=== PATIENT | male | born 1955 | race Caucasian/White ===

== ENCOUNTER 2016-08-11 12:48 | Day surgery (SDC) | payer OTHER ==
[~2016-08-11] VITALS: Ht 172.7 cm; Wt 107.0 kg
[~2016-08-11 12:48] MED LIST: ADAL40KI SQ; AMLO10TA3 PO; ATOR10TA66 PO; CYAN50002 SL; DIAZ5TAB3 PO; FENO67CA PO; HYDR-4003 PO; MESA4KIT RC; PROP40TA5 PO
[2016-08-11 14:18] VITALS: BP 136/87; PULSE 59; RESP 18; O2SAT 95
[2016-08-11] MEDS ORDERED: 0.9% Sodium Chloride 1,000 ML IV PRN (14:52)
[2016-08-11] MEDS ORDERED: fentaNYL-PF 50 mCg/mL 2 mL Inj IVPUSH PRN (14:55)
[2016-08-11] MEDS ORDERED: Sodium Chloride LOK Flush 10 mL Syringe IV PRN (14:55)
[2016-08-11 16:17] VITALS: BP 157/96; PULSE 63; RESP 16; O2SAT 97
[2016-08-11 16:27] VITALS: BP 13/87; PULSE 60; RESP 14; O2SAT 96
[2016-08-11 16:37] VITALS: BP 143/83; PULSE 59; RESP 16; O2SAT 96
--- NOTE | 2016-08-11 16:38 | ENDO ---
[address] [address] ENDOSCOPY PROCEDURE PATIENT: PATO PERLA : 1955 MR#: [id number] ADMIT: 08/11/2016 JOB ID: [id number] DATE: 08/11/2016 PRIMARY PROVIDER: Tunde Little MD PROCEDURE: Colonoscopy with biopsies. INDICATIONS: A 61-year-old male with a personal history of colon polyps and colitis. Last exam approximately two years ago. He had an element of rectal inflammation, but both right and left colon biopsies were otherwise unremarkable. 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 EQUIPMENT: PCF H 190 dL. SEDATION: 1. 5 mg Versed. 2. 100 mcg fentanyl. COMPLICATIONS: None identified. BOWEL PREPARATION: Fair, adequate exam. PROCEDURE INFORMATION: After the risks and benefits were explained, written and verbal informed consent was obtained. The patient was brought into the endoscopy suite and placed into the left lateral decubitus position. Sedation was achieved using the above-stated medications with the addition of oxygen via nasal cannula. A digital rectal examination was accomplished. No significant pathology apart from some internal hemorrhoids. The scope was introduced into the rectum and advanced to the cecum as identified by the appendiceal orifice and ileocecal valve. The scope was slowly withdrawn to carefully examine the mucosa for any defects or lesions. Multiple direct views were made through the dentate line for exclusion of pathology. The colon was decompressed. The scope removed from the patient who tolerated the procedure well. FINDINGS: There was a small patch of slightly hyperplastic-appearing mucosa on the ileocecal valve. I took a biopsy of this to make sure there were no adenomatous features. I did not see any evidence of proctitis and no evidence of colitis throughout. We additionally took both a right and left colon biopsy to confirm the visual findings. ENDOSCOPIC DIAGNOSES: 1. No evidence of active inflammatory bowel. 2. Slight irregularity on the ileocecal valve. 3. Hemorrhoids. RECOMMENDATIONS: 1. Await histopathology. 2. Continue current IBD therapy with Humira. 3. If there are any adenomatous features on the IC valve biopsy, then early repeat surveillance for hot snare polypectomy would be required in the next 3-4 months. Otherwise, repeat colonoscopy in two years.
[2016-08-11 16:47] VITALS: BP 145/82; PULSE 60; RESP 14; O2SAT 95
--- NOTE | 2016-08-13 15:45 | PATH ---
SURGICAL PATHOLOGY Attending Physician:Jeevan Butcher CASE STATUS: Signed Out PATIENT NAME: PATO PERLA PID: [id number] : 1955 DATE COLLECTED:08/11/2016 00:00 SPECIMEN: 1: Ileum, Biopsy 2: Colon, Biopsy 3: Colon, Biopsy CLINICAL HISTORY: 1). ILEOCECAL VALVE BIOPSY 2). RIGHT COLON BIOPSIES 3). LEFT COLON BIOPSIES FINAL DIAGNOSIS: 1.ILEOCECAL VALVE BIOPSY: FRAGMENT OF NORMAL-APPEARING COLON MUCOSA WITH NO SMALL BOWEL MUCOSA PRESENT. Negative for significant architectural distortion. Negative for significant inflammation, dysplasia and malignancy. 2. 3.RIGHT COLON AND LEFT COLON BIOPSIES: FRAGMENT OF NORMAL-APPEARING COLON MUCOSA IN EACH SPECIMEN. Negative for significant architectural distortion. Negative for significant inflammation, dysplasia and malignancy. ICD10 code Z87.19 GROSS DESCRIPTION: The specimen is received in three formalin filled containers labeled with the patient's name. 1). The specimen is sublabeled "and consists of a 0.3 x 0.2 x 0.2 CM portion of tissue which is entirely submitted in cassette 1A. 2). The specimen is sublabeled "right colon" and consists of a 0.2 x 0.2 x 0.2 CM portion of tissue which is entirely submitted in cassette 2A. 3). The specimen is sublabeled "left colon" and consists of a 0.2 x 0.2 x 0.2 CM portion of tissue which is entirely submitted in cassette 3A. 08/12/2016 DAC MICRO DESCRIPTION: See diagnosis. ICD-9 CODES: CPT CODES: 1: 88865 2: 30950 3: 45624 Electronically Signed Out Osiel Wilkerson MD [facility] [address], [place] [address] Technical component performed at [facility], [facility] [address], [place], [address]
[2016-09-02] MEDS ORDERED: CYAN50008 PO (14:37)
[2016-09-02] MEDS ORDERED: FENO67CA PO (14:37)
[2016-09-02] MEDS ORDERED: ATRV10T PO (14:37)
[2016-09-02] MEDS ORDERED: PROP40TA5 PO (14:37)
[2016-09-02] MEDS ORDERED: DIAZ5TAB3 PO (14:37)
[2016-09-02] MEDS ORDERED: ADAL40KI SQ (14:37)
[2016-09-02] MEDS ORDERED: AMLO10TA3 PO (14:37)
[2016-09-02] MEDS ORDERED: HYDR-4003 PO (14:37)
== END 2016-08-11 23:59 | disposition home or self-care (01) ==
LOC: END 12:48
PROVIDERS: ATTEND Internal Medicine Gastroenterology
DX: Z12.11 Encounter for screening for malignant neoplasm of colon (principal); Z86.010 Personal history of colon polyps; K64.9 Unspecified hemorrhoids; Z87.19 Personal history of other diseases of the digestive system; I10 Essential (primary) hypertension; F41.9 Anxiety disorder, unspecified; E78.5 Hyperlipidemia, unspecified; K76.89 Other specified diseases of liver; E66.9 Obesity, unspecified; N40.0 Benign prostatic hyperplasia without lower urinary tract symptoms; Z87.891 Personal history of nicotine dependence; Z79.4 Long term (current) use of insulin; Z68.35 Body mass index [BMI] 35.0-35.9, adult
CPT/HCPCS: 45380; 99153; G0500; J7030

== ENCOUNTER 2016-09-06 10:43 | Inpatient (IN) | payer OTHER ==
[2016-09-06] VITALS (20 sets, daily range): BP systolic 143–188; BP diastolic 86–103; PULSE 60–81; RESP 10–16; O2SAT 94–99
[~2016-09-06] VITALS: Ht 175.3 cm; Wt 111.8 kg
[2016-09-06] MEDS: CeFAZolin Inj 2 GM in IV Premix 1 EACH IV SCH ×2 (06:00→16:42)
[~2016-09-06 10:43] MED LIST changes: -ATOR10TA66 PO; +ATRV10T PO; -CYAN50002 SL; +CYAN50008 PO; +Lactated Ringer's 1,000 ML IV ONE; -MESA4KIT RC
[2016-09-06] MEDS ORDERED: MANNITOL 25% ONE (16:23)
[2016-09-06] MEDS ORDERED: Lactated Ringer's 500 ML IV PRN (17:00)
[2016-09-06] MEDS ORDERED: Ondansetron 2 mg/mL 2 mL Inj IVPUSH PRN (17:00)
[2016-09-06] MEDS ORDERED: Lactated Ringer's 1,000 ML IV SCH (17:00)
[2016-09-06] MEDS ORDERED: Phenylephrine 10,000 mCg/mL Inj IVPUSH PRN (17:00)
[2016-09-06] MEDS ORDERED: EPHEDrine Sulfate 50 mg/mL Inj IVPUSH PRN (17:00)
[2016-09-06] MEDS ORDERED: MetoCLOpramide 5 mg/mL 2 mL Inj IVPUSH PRN (17:00)
[2016-09-06] MEDS ORDERED: Dexamethasone 4 mg/mL Inj IVPUSH PRN (17:00)
--- NOTE | 2016-09-06 17:00 | PCM.HPANE ---
Patient Data Date of Service: Sep 06, 2016 Surgeon Admitting Provider: Attending Provider:Brea Alexis MD Primary Care Physician:Tunde Little MD Other Provider:Antelmo Hernandez Anesthesia Reason for Visit Right Renal Mass RIGHT RENAL MASS Ht/WT & BMI Height (Feet): 5 Height (Inches): 8 Weight (Kilograms): 111.5 Body Mass Index 37.00 Allergies Coded Allergies: lisinopril (Verified Allergy, Unknown, Rash, 08/11/16) Past Anesthesia History Anesthesia History: Denies:: Abnormal Airway, Anesthesia Reactions, Difficult Intubation, Fam Anesthesia Reaction, Fam Malignant Hypertherm, Malignant Hyperthermia Diabetes History Hx Diabetes?: No MRSA MRSA: No Medications Blood Thinner: Aspirin Hypertension Medication: Yes Home Meds Incl Beta Angela: Yes Date Beta Angela Taken: Sep 06, 2016 Time Beta Angela Taken: 0830 Reported Medications Cyanocobalamin (Vitamin B-12) (Vitamin B12)5,000 Mcg Tab.rapdis5,000 Mcg PO DAILY 09/02/16 Propranolol HCl 40 Mg Jtjmlu51 Mg PO BID Ref 0 09/02/16 Hydrocodone-Acetaminophen 5-325 mg 1 Each Tablet1 Tablet PO Q12H PRN For Pain Ref 0 09/02/16 Adalimumab (Humira)40 Mg/0.8 Ml Kit40 Mg SQ WEEKLY takes on fridays09/02/16 Fenofibrate,Micronized (Fenofibrate)67 Mg Xadzcdz31 Mg PO DAILY Ref 0 09/02/16 Diazepam 5 Mg Tablet5 Mg PO BID PRN For Anxiety Ref 0 09/02/16 Atorvastatin (Lipitor)10 Mg Tab10 Mg PO DAILY Ref 0 09/02/16 Amlodipine 10 Mg Amdqaw28 Mg PO DAILY Ref 0 09/02/16 Discontinued Reported Medications Mesalamine W/Cleansing Wipes (Mesalamine 4 gm/60 ml Kit)4 Gm/60 Ml Kit4 Gm RC HS PRN PRN Ref 0 01/02/16 Hydrocodone-Acetaminophen 5-325 mg 1 Each Tablet1 Tablet PO Q12H PRN For Pain Ref 0 01/02/16 Cyanocobalamin (Vitamin B-12) (Vitamin B-12)5,000 Mcg Tab.subl5,000 Mcg SL DAILY 07/25/14 Propranolol HCl 40 Mg Tfugkr22 Mg PO BID Ref 0 07/25/14 Adalimumab (Humira)40 Mg/0.8 Ml Kit40 Mg SQ WEEKLY 3/5/15 Fenofibrate,Micronized (Fenofibrate)67 Mg Czyyecm56 Mg PO DAILY 30 Days Ref 0 07/25/14 Diazepam 5 Mg Tablet5 Mg PO BID PRN For Anxiety #90 TABLET Ref 0 07/25/14 Atorvastatin Calcium 10 Mg Cjaszr98 Mg PO DAILY 30 Days Ref 0 07/25/14 Amlodipine 10 Mg Qjreyi44 Mg PO DAILY 30 Days Ref 0 07/25/14 History History of ENT Problems?: Yes HEENT History: Denies:: Abnormal Airway Cataracts Difficult Intubation Glaucoma Hearing Problem Teeth Condition: Missing Teeth Hx of Heart Problems?: Yes Cardiovascular History: Positive for:: Hypertension Denies:: AICD Abdominal Aortic Aneurism Atrial Fibrillation Cardiac Surgery Heart Murmur Irregular Heartbeat Pacemaker Valvular Heart Disease Hx of Respiratory Problem?: No Respiratory History: Denies:: Asthma COPD Cough Dyspnea Emphysema Oxygen Administration Pneumonia (as child) Tuberculosis Use of C-PAP Machine Use of Inhalers / NEBS Hx Neurologic Problems?: Yes Neurological History: Denies:: CVA Dementia Headaches Multiple Sclerosis Parkinson's Disease (TREMORS TX W/ PROPRANOLOL) Seizures TIA Hx of GI Problems?: Yes Gastrointestinal History: Positive for:: Rectal Bleeding (HX ULCERATIVE COLITIS HX COLON POLYPS) Denies:: Diverticulitis Gall Bladder Disease Gastroesphageal Reflux Heartburn Hiatal Hernia Hx of Problems?: Yes Genitourinary History: Denies:: Kidney Stones Urinary Tract Infection Other Pertinent History: right renal mass current admission problem Male Hx: Denies:: Prostate Problems Scrotal Mass Testicular Surgery Skin History: Denies:: History Skin Disorders? Pressure Ulcers Hx Musculoskeletal Problems?: Yes Musculoskeletal History: Positive for:: Back Injury (hx of back surgery) Musculoskeletal Trauma (left knee scope- needs partial knee replaced) Osteoarthritis Denies:: Fibromyalgia Joint Replacement Systemic Lupus Hx of Psycho/Social Problems?: No Psycho Social History: Denies:: Anxiety Hx Depression Hx Surgeries?: Yes (LT KNEE SCOPE,L5S1 DISCECTOMY/FUSION,EXC BASAL & SQUAMOUS CELL CA'S) Hx Any Other Health Problems?: Yes Other History: Positive for:: Cancer (renal mass ca current admission problem) Denies:: Endocrine Disease Hospitalization Thyroid Disease History Blood Transfusions: Positive for:: Accept Blood Products? Denies:: Blood Transfusions Hx Diabetes: No Hx Alcohol Use: NoHx Substance Use: No Smoking Status: Former Smoker Have You Smoked inLast 12 mo: No Stop/Bang Treated for Sleep Apnea?: No Do You Have a CPAP Machine?: No S-Snoring: Do You Snore Loudly: No T-Tired: feel tired, fatigued: No O-Obsered: Observed not breath: No P-Blood Pressure: treated: Yes B- Body Mass Index > 35 kg/m2: Yes A- Age over 50: Yes N- Neck Large Circumference: No G- Gender Male: Yes KIMBERLY Total Score: 4 KIMBERLY Risk Assessment: High Risk, =/>3 Yes Risk Assessment Category Category 1A: Patient has history of documented sleep apnea, and HAS NOT received any narcotic, sedative or anesthesia administration during this stay. Category 1B: Patient has history of documented sleep apnea, and HAS received any narcotic , sedative or anesthesia administration during this stay Category 2: Patient has SUSPECTED Obstructive Sleep Apnea, and HAS received any narcotic , sedative or anesthesia administration during this stay. Category 3: Patient has SUSPECTED Obstructive Sleep Apnea and HAS NOT received narcotic, sedative or anesthesia administration during this stay. Category 4: Outpatient in Procedural Areas with known sleep apnea or who screen positive for High Risk via the STOP/BANG questionnaire. Exam Exam Vital Signs Vital Signs Date Time Temp Pulse Resp B/P Pulse Ox O2 Delivery O2 Flow Rate FiO2 09/06/16 11:24 36.3 60 16 158/96 98 Room Air General Appearance: Alert, Oriented X3 HEENT/AIRWAY: MP 1 Lungs: Clear to Auscultation Heart: Exam Unremarkable Meds/Labs/Diagnostics Admission Meds Current Medications Lactated Ringer's (Lr) 1,000 ml @ 120 mls/hr Q8H20M ONCE IV Last administered on 09/06/16t 11:23; Start 09/06/16 at 05:00; Stop 09/06/16 at 13:19; Status DC Plan Impression Patient chart reviewed, patient interviewed and anesthestic plan with risks, benefits, and alternatives discussed, and informed consent obtained. NPO Status: 0830 ASA Physical Status: ASA2 Mod Systemic Disease Anesthetic Plan: GA Bene/Risks/Altern/Consents: Yes HP Complete Prior to Induction: Yes Clayton Koroma MD Sep 06, 2016 17:00
[2016-09-06] MEDS ORDERED: Lactated Ringer's 1,000 ML IV ONE ×2 (18:25→19:00)
[2016-09-06] MEDS ORDERED: Bupivacaine-MPF 0.25% 30 mL Inj INFILTRATE ONE (19:45)
[2016-09-06] MEDS: fentaNYL-PF 50 mCg/mL 2 mL Inj IVPUSH PRN ×3 (20:00→21:10)
[2016-09-06] MEDS ORDERED: HYDROmorphone PCA 0.2 mg/mL 30 mL Inj IV PRN (20:00)
[2016-09-06] MEDS ORDERED: Labetalol 5 mg/mL 4 mL Inj IV PRN (20:10)
[2016-09-06] MEDS ORDERED: hydrALAZINE 20 mg/mL Inj IVPUSH PRN (20:10)
--- NOTE | 2016-09-06 20:11 | PCM.ANEP2 ---
Post Anesthesia Evaluation ASA/CMS Post Anesthesia VS in Patient's Normal Range?: Yes Resp Stable; Airway Patent?: Yes CV Function & Hydration Stable: Yes Mental Status Recovered?: Yes Pain control Satisfactory?: Yes N/V Control Satisfactory?: Yes Clayton Koroma MD Sep 06, 2016 20:11
--- NOTE | 2016-09-06 20:11 | PCM.ANEP1 ---
Post Anesthesia Phase 1 PACU Phase 1 Assessment Date of Service: Sep 06, 2016 Anesthetic Administered: GA Level of Alertness: Sleepy, easy to arouse Pain: No Nausea or Vomiting: No Oxygen Delivery: Simple Mask Lungs: Clear to Auscultation Clayton Koroma MD Sep 06, 2016 20:11
[2016-09-06] MEDS: HYDROmorphone 1 mg/mL Inj IVPUSH PRN ×2 (21:00→21:10)
[2016-09-06] MEDS ORDERED: Dexamethasone 4 mg/mL Inj ONE (21:34)
[2016-09-06] MEDS ORDERED: Propofol 10,000 mCg/mL 20 mL Inj ONE (21:34)
[2016-09-06] MEDS ORDERED: Ondansetron 2 mg/mL 2 mL Inj ONE (21:34)
[2016-09-06] MEDS ORDERED: Ketamine 10 mg/mL 20 mL Inj ONE (21:34)
[2016-09-06] MEDS ORDERED: Glycopyrrolate 0.2 MG/ML 1mL Inj ONE (21:34)
[2016-09-06] MEDS ORDERED: Phenylephrine/NS 100 mCg/mL 10 mL Syringe IVPUSH ONE (21:34)
[2016-09-06] MEDS ORDERED: HYDROmorphone 2 mg/mL Inj ONE (21:34)
[2016-09-06] MEDS ORDERED: Succinylcholine Chloride 20 mg/mL 5 mL Inj ONE (21:34)
[2016-09-06] MEDS ORDERED: Rocuronium 10 mg/mL 5 mL Inj ONE (21:34)
[2016-09-06] MEDS ORDERED: Neostigmine 1 mg/mL 10 mL Inj ONE (21:34)
[2016-09-06] MEDS: D5 0.45% NaCl + KCl 20 mEq/L 1,000 ML IV SCH (21:51)
[2016-09-07] VITALS (14 sets, daily range): BP systolic 130–163; BP diastolic 73–94; PULSE 76–102; RESP 16–20; O2SAT 90–97
--- NOTE | 2016-09-07 02:11 | OP ---
[address] [address] OPERATIVE REPORT PATIENT: PATO PERLA : 1955 MR#: [id number] ADMIT: 09/06/2016 JOB ID: [id number] DATE OF SURGERY: 09/06/2016 PREOPERATIVE DIAGNOSIS(ES): Right renal mass. POSTOPERATIVE DIAGNOSIS(ES): Right renal mass. PROCEDURE PERFORMED: Right open radical nephrectomy. SURGEON: Brea Alexis MD. TEACHER OF THE HEARING IMPAIRED: Hank Cedillo MD (his expert assistance was required for aiding the dissection). FINDINGS: Endophytic renal mass. ANESTHESIA: General and 0.25% bupivacaine subcutaneously. ESTIMATED BLOOD LOSS: 100 mL. DRAINS: Car catheter to the bladder. SPECIMENS: Right radical nephrectomy specimen. COMPLICATIONS: None. CONDITION: Stable. INDICATION FOR PROCEDURE: The patient is a 61-year-old gentleman with an endophytic renal mass. He presents for possible right partial nephrectomy versus radical nephrectomy. DESCRIPTION OF PROCEDURE: After informed consent was obtained, the patient was taken to the operating room. A time-out was performed identifying correct patient, surgical site, and procedure. General anesthesia was smoothly induced. He was given intravenous antibiotics just prior to start of procedure. He was placed in the supine position and all pressure points were identified and appropriately padded. A 16-Welsh Car catheter was placed in the patient's bladder and insufflated with 10 cc of sterile water and set to dependent drainage. The patient's abdomen and flank were then prepped and draped in usual sterile fashion. Approximately two fingerbreadths inferior to the subcostal margin an incision was made, initially approximately 4 inches, though it ultimately had to be elongated given the patient's large anterior to posterior diameter. The incision was made with a 10 blade. Bovie electrocautery used to incise the subcutaneous tissues. Entry into the peritoneal cavity was gained. The Bookwalter device was positioned over the patient with care being taken to not directly rest the device on the patient. The dissection was difficult given the patient's body habitus. Ultimately, the white line of Toldt was taken down with Bovie electrocautery. The dissection proceeded inferiorly and the ureter was seen and tagged with a vessel loop. Medially, the dissection was extremely difficult with the hilum given how deep this was because of his body habitus. There were two renal veins coursing off of the inferior vena cava. The renal artery could be palpated posteriorly to his renal veins but could not be seen because they were surrounded by a thick layer of fat and really could not be dissected given the minimal working space. The kidney was freed posteriorly and attention was turned to the superior aspect of the dissection, and this was freed with Bovie electrocautery, as well as Thunderbeat. Efforts were made to consider safe partial nephrectomy, but given how deep the renal artery was that it could not be dissected away from these two renal veins that were adjacent to one another, it was decided to take the hilum in its entirety with an Endo-MARCELO vascular load. Partial nephrectomy would have been quite difficult given the completely endophytic nature of the mass also involving the hilum, but in consideration of how deep the renal hilum was and it was inaccessible, a radical nephrectomy had to be performed. The hilum was taken down with the Endo-MARCELO and there was excellent hemostasis. Dissection proceeded superomedially where the adrenal gland was seen. It was preserved with the patient and dissected away from the specimen. Ultimately, the kidney was freed and passed off the table as right radical nephrectomy. The renal fossa was copiously irrigated with saline. The superior aspect of the fossa was treated with argon laser coagulation. FloSeal and Surgicel was placed in the renal fossa and over the hilum. The fascial layers were closed in two layers with looped 0 PDS, 3-0 Vicryl was used to the close Brooke's and 4-0 Monocryl was used in running subcuticular fashion. Bupivacaine 0.25% was used in total 20 mL to the incision site. Dermabond was placed over the wound and allowed to dry. The patient was then reversed from general anesthesia and taken to the PACU in good and stable condition. All sponge, instrument, and needle counts were correct at the end of the procedure. WILLIAM
[2016-09-07] MEDS: D5 0.45% NaCl + KCl 20 mEq/L 1,000 ML IV SCH ×4 (02:39→17:45)
--- NOTE | 2016-09-07 04:59 | NUR ---
Arrival to [facility]. Pt transferred to bed with slideboard. TERMITE CONTROL SERVICE REPRESENTATIVE dilauded initiated for pain control. Car draining pale yellow urine. R side nephrectomy incision is CDI with no dressing, just dermabond. Pt states he has chronic pain from back injury. 2x IV site patent, R infusing D5 1/2 NS with 20 Kcl at 150, L if saline locked. Pt states he does not have KIMBERLY and has not been tested/treated for it. Pt remains on CPOX and 2L nc this shift. PT up to recliner for several hours. No SOB or chest pain. Care continues
[2016-09-07] MEDS ORDERED: MetoCLOpramide 5 mg/mL 2 mL Inj IVPUSH PRN (09:25)
--- NOTE | 2016-09-07 10:53 | NUR ---
BP P: Pt hyptertensive at 162/92 with HR of 102 at 0800. I: Home BP meds given. E: Follow up BP is 130/73 with HR 76. Will continue to monitor closely. Addendum: 09/07/16 at 1824 by PAZ PEGUERO RN Hypertension BP at 1640 was 157/92, HRR 80. Medicated for pain at this time. Recheck at 1745 BP was 163/94, HRR 84. Hydralazine 5mg given IV. Recheck at 1815 BP was 148/81. Will continue to monitor closely.
--- NOTE | 2016-09-07 11:26 | NUR ---
Social Work-initial assessment: Data: EMR reviewed. Pt is a 61 y/o male who was admitted for right renal mass per H&P. Pt's insurance is [employer] PCP is Tunde Little MD. EMR reviewed. SW met with pt and SW role explained. Pt is alert and oriented. Pt resides at home with his where he remains independent. Pt drives and does not use any DME. SW discussed DPOA/ advanced directive, SW confirmed with pt that this has been completed. Pt's to provide transport home at discharge. SW provided phone number and plan on white board in room. No anticipated discharge needs. SW will continue to follow if needs arise. Assessment:Pt who is independent at baseline. Plan:Pt to discharge home when medically stable via POV. No anticipated discharge needs. SW will continue to follow if needs arise. VICENTE Mcguire
--- NOTE | 2016-09-07 15:24 | PCM.PNSURG ---
Subjective Date of Service: Sep 07, 2016 Date of Service: Sep 07, 2016 Visit Information: Reason for Visit Right Renal Mass Surgery/Surgery Date RIGHT open radical nephrectomy 09/06/16 Post-Op Day # 1 Date of Admission: Sep 06, 2016 at 21:33 Hospital Day #2 Subjective: Pt is sitting in chair during visit, complains of decreased appetite and nausea , pain is a 4/10 at this time, well controlled. He has not yet performed IS Postop General: No Shortness of Breath, No Chest Pain Gastrointestinal: Complains of Nausea (no vomiting) Pain Management: BAND TACKER without Basal Objective Vital Sign- Last 8 Hours Date Time Temp Pulse Resp B/P Pulse Ox O2 Delivery O2 Flow Rate FiO2 09/07/16 10:52 76 16 130/73 94 Nasal Cannula 2.00 09/07/16 09:06 Supplement Oxygen 09/07/16 09:03 16 92 09/07/16 08:22 91 18 92 Room Air 09/07/16 07:59 37.1 102 16 162/92 93 Room Air Intake and Output- Last 8 Hour 09/07/16 Cumulative From/Thru 07:00 09/02/16 14:22 - 09/07/16 06:34 Intake Total 350 ml 3150 ml Output Total 550 ml 1120 ml Balance -200 ml 2030 ml Intake Oral 350 ml 350 ml IV Total 2800 ml Output Urine Total 550 ml 1020 ml Estimated Blood Loss 100 ml # Bowel Movements 0 0 General: Alert, Oriented X3, No Acute Distress Neck: Supple Lungs: Normal Air Movement Abdomen: Soft, Appropriately tender Extremities: Warm Neuro: Grossly Neurologically Intact Catheters: Urethral 2 Way Car Result Diagram: 09/07/16 0450 09/07/16 0450 Assessment & Plan Impression POD #1 Right open radical nephrectomy. Problems: Plan We discussed the importance of ambulation and Incentive spirometry We will d/c his BAND TACKER today and switch to oral pain medications. We discussed that nausea likely related to pain medications and no PO intake. He will attempt to increase diet Continue fluids- D5 1/2 NS with K+ Car was removed this morning at 8AM, pt was able to void without difficulty this afternoon around noon. Pt wanted diazepam added on to medications, reports he takes with chronic pain medications. will defer to Dr. Alexis, she will possibly add tomorrow if pt does not tolerate oral pain medications. Genesis العلي PA-C Sep 07, 2016 15:23
[2016-09-07] MEDS ORDERED: HYDROmorphone 1 mg/mL Inj IVPUSH PRN (15:55)
[2016-09-07] MEDS: oxyCODONE-Acetamin 5-325 mg Tablet PO PRN ×2 (16:35→20:45)
[2016-09-08] MEDS: D5 0.45% NaCl + KCl 20 mEq/L 1,000 ML IV SCH ×2 (01:11→08:20)
[2016-09-08] MEDS: oxyCODONE-Acetamin 5-325 mg Tablet PO PRN ×3 (01:16→13:31)
[2016-09-08 03:24] VITALS: BP 155/78; PULSE 82; RESP 18; O2SAT 92
--- NOTE | 2016-09-08 06:33 | NUR ---
Activity Pt up to bathroom, ambulates with SBA. Difficulty transfer in and out of bed due to pain and reduced mobility. Incision CDI and glue intact. No chest pain or SOB, on RA. Pain managed with PO meds and one dose dilauded for breakthrough pain. Care continues
[2016-09-08 08:12] VITALS: BP 183/97; PULSE 80; RESP 18; O2SAT 91
[2016-09-08 10:20] VITALS: BP 164/79; PULSE 77
--- NOTE | 2016-09-08 10:58 | NUR ---
Social Work-readiness for discharge: Data:EMR reviewed. Pt is on day 2 of hospitalization for right renal mass per H&P. Pt is not medically stable anticipate tomorrow. Pt resides at home with his where he remains independent with ADls. Pt has been up independent in his room. Pt declines any SW needs. Pt's family to provide transport home. No discharge needs identified. SW will continue to follow if needs arise. Assessment:Pt who is independent at baseline. Plan:Pt to discharge home when medically stable. No discharge needs identified. SW will continue to follow if needs arise. VICENTE Lam
--- NOTE | 2016-09-08 11:38 | PCM.PNSURG ---
Subjective Date of Service: Sep 08, 2016 Date of Service: Sep 08, 2016 Visit Information: Reason for Visit Right Renal Mass Surgery/Surgery Date r partl nephrectomy 09/06/16 Post-Op Day # 2 Date of Admission: Sep 06, 2016 at 21:33 Hospital Day # 3 Subjective: Mr Parker reports doing relatively well overall in light of his recent surgery-- his pain is well controlled with Percocet. He is tolerating soup and Ensure w/o N/V. He hasn't had flatus yet. He is ambulating. He is urinating on his own. Postop General: No Complaints Gastrointestinal: No N/V Pain Management: PO, IV Push Objective Vital Sign- Last 8 Hours Date Time Temp Pulse Resp B/P Pulse Ox O2 Delivery O2 Flow Rate FiO2 09/08/16 10:20 77 164/79 09/08/16 08:12 37.2 80 18 183/97 91 Room Air Intake and Output- Last 8 Hour 09/08/16 Cumulative From/Thru 07:00 09/02/16 14:22 - 09/08/16 06:42 Intake Total 2228 ml 9605 ml Output Total 1050 ml 3170 ml Balance 1178 ml 6435 ml Intake Oral 450 ml 2067 ml IV Total 1778 ml 7538 ml Output Urine Total 1050 ml 3070 ml Estimated Blood Loss 100 ml # Bowel Movements 0 0 General: Alert Abdomen: Benign, Soft, Other (wound c/d/i w/o exudate or erythema) Extremities: Warm Neuro: Cranial Nerves 2-12 nl Catheters: None Result Diagram: 09/07/16 0450 09/08/16 0549 Assessment & Plan Impression POD#2 RIGHT radical Nx Problems: Plan We reviewed his Cr - Expected after radical Nx We discussed DC planning - He states he feels ready today We talked about: - Wound care: showers ok; no baths/submersions x4 wks - Activity restrictions: no driving/operating machinery on Percocet. No lifting more than 10-15# x 4 wks - F/U: BUN/Cr this Tuesday or Tuesday. F/U in clinic 2 wks We discussed indications to call the office Brea Alexis MD Sep 08, 2016 11:38
--- NOTE | 2016-09-08 11:41 | PCM.DISURG ---
Surgical Discharge Instruction Date of Service Sep 08, 2016 Dates of Hospitalization Date of Hospital Admission Sep 06, 2016 at 21:33 Providers Admitting Physician: Brea Alexis MD Primary Care Physician: Tunde Little MD Attending Physician: Brea Alexis MD Discharge Diagnosis Discharge Diagnosis RIGHT renal mass Post Operative diagnosis Same Diet Discharge Diet: Other (well-balanced; never high protein diet) Activity Discharge Activity-General: Be up and about, Balance rest and activity, No lifting >10 pounds for 4-6 weeks, No driving while taking narcotic Dressing and Incisional Care Hygiene: May shower, DO NOT soak incision under water, NO bathtub, hot tub or whirlpool Follow Up Plan Follow Up Plan Lab draw (BUN, creatinine) 09/10 or 09/13/[address] Alexis 2 wks Call your provider for: Fever, Chills, Vomiting, Increasing wound pain, Discharge @ incision, pus discharge Brea Alexis MD Sep 08, 2016 11:41
--- NOTE | 2016-09-08 11:45 | PCM.DC.SUR ---
Discharge Summary Date of Service: Sep 08, 2016 Date of Hospital Admission: Sep 06, 2016 at 21:33 Date of Operation(s): 09/06/16 Date of Discharge: 09/08/16 Diagnosis at Time of Discharge RIGHT renal mass Problems: Operation RIGHT radical nephrectomy Brief History and Physical: 61 M with 4 cm renal mass. Hospital Course: He underwent radical Nx and uneventful recovery. By the time of DC home, he was ambulating, had good pain control with Percocet, and was tolerating nutrition by mouth. Pathology: Pending Disposition: Home Follow-up Plan: Lab Tuesday or Tuesday RTC 2 wks Amlodipine (Amlodipine) 10 Mg Tablet 10 MG PO DAILY (Reported) Atorvastatin (Lipitor) 10 Mg Tab 10 MG PO DAILY (Reported) Cyanocobalamin (Vitamin B-12) (Vitamin B12) 5,000 Mcg Tab.rapdis 5,000 MCG PO DAILY (Reported) Diazepam (Diazepam) 5 Mg Tablet 5 MG PO BID PRN PRN For Anxiety (Reported) Fenofibrate,Micronized (Fenofibrate) 67 Mg Capsule 67 MG PO DAILY (Reported) Hydrocodone-Acetaminophen 5-325 mg (Hydrocodone-Acetaminophen 5-325 mg) 1 Each Tablet 1 TABLET PO Q12H PRN PRN For Pain (Reported) Propranolol HCl (Propranolol HCl) 40 Mg Tablet 40 MG PO BID (Reported) Brea Alexis MD Sep 08, 2016 11:45
--- NOTE | 2016-09-08 11:51 | NUR ---
Social Work- discharge: Data:EMR reviewed. Pt is on day 2 of hospitalization for right renal mass per H&P. Pt is medically stable for discharge. Pt has been up independent in his room. Pt declines any SW needs. No discharge needs identified. All updated and agreeable to plan. Assessment:Pt who is independent at baseline. Plan:Pt to discharge home today via POV. No discharge needs identified. All updated and agreeable to plan. VICENTE Lam
[2016-09-08 12:54] VITALS: BP 173/89; PULSE 78; RESP 20; O2SAT 93
--- NOTE | 2016-09-08 15:34 | NUR ---
Discharge To home via private vehicle with at 15:35. Steady transfer to wheelchair. IV discontinued intact. Pt expresses understanding of all discharge instructions and carenotes, including followup. All belongings sent with pt. Pt and had previously both stated that pt is does not want to go home today and that he been told he could stay another night. [address] Alexis. While awaiting callback, pt got himself dressed and stated he was tired of waiting and ready to go home. Discussed with pt and , and they were both pleasant and stated they were ready to go home. Declined to wait for clarification on home med orders from Dr Alexis, stated "she already told me about it."
== END 2016-09-08 15:33 | disposition home or self-care (01) | DRG 658 ==
LOC: SAS 10:43 → OSC 21:33
PROVIDERS: ADMIT Urology; ATTEND Urology
PROC: 0TT00ZZ Resection of Right Kidney, Open Approach (ICD-10-PCS; principal; 2016-09-06 12:45)
DX: C64.1 Malignant neoplasm of right kidney, except renal pelvis (principal); I10 Essential (primary) hypertension; Z87.891 Personal history of nicotine dependence